=== PATIENT | male | born 1995 | race Caucasian/White ===

== ENCOUNTER 2018-11-13 09:39 | Emergency (ER) | payer SELFPAY ==
[~2018-11-13] VITALS: Ht 167.6 cm; Wt 82.7 kg
[2018-11-13 09:45] VITALS: BP 143/90
--- NOTE | 2018-11-13 09:47 | NUR ---
PATIENT AMBULATED TO BED 6.
--- NOTE | 2018-11-13 09:58 | NUR ---
23/M BIB FRIEND C/O BILATERAL UPPER QUADRANT ABD PAIN & N/V X 1 DAY.ABD SOFT. PATIENT STATES PAIN OF 10/10 AT THIS TIME. PATIENT POSITIONED FOR COMFORT; HOB ELEVATED; BEDRAILS UP X1; BED DOWN. ER MD MADE AWARE OF PT STATUS.
--- NOTE | 2018-11-13 10:17 | NUR ---
DR. ESPINAL AT BEDSIDE EVALUATING PATIENT.
[2018-11-13] MEDS ORDERED: DICYCLOMINE HCL LIQUID 20 MG, ALUMINUM HYD/MAG/SIMETHICONE 30 ML, LIDOCAINE VISCOUS 2% ... PO ONE ×3 (10:20)
[2018-11-13 10:46] VITALS: BP 121/84
--- NOTE | 2018-11-13 10:46 | NUR ---
Patient discharged with v/s stable. Written and verbal after care instructions given and explained. Patient alert, oriented and verbalized understanding of instructions. Ambulatory with steady gait. All questions addressed prior to discharge. ID band removed. Patient advised to follow up with PMD. Rx of ZOFRAN, MOTRIN 7 PRILOSEC given. Patient educated on indication of medication including possible reaction and side effects. Opportunity to ask questions provided and answered.
== END 2018-11-13 10:46 | disposition home or self-care (01) ==
LOC: MED 09:39
DX: R10.13 Epigastric pain (principal); R11.2 Nausea with vomiting, unspecified; F12.10 Cannabis abuse, uncomplicated
CPT/HCPCS: 81002; 99282